=== PATIENT | male | born 1995 | race African-American/Black ===

== ENCOUNTER 2021-01-21 13:12 | Emergency (ER) | payer MEDICAID ==
[~2021-01-21] VITALS: Ht 162.6 cm; Wt 64.0 kg
[2021-01-21] MEDS ORDERED: MORPHINE SULFATE 4 MG/ML CPJ (NOT FOR IM USE) IV STA (13:14)
[2021-01-21] MEDS ORDERED: ONDANSETRON HCL 4MG/2ML INJ IV STA (13:14)
[2021-01-21] MEDS ORDERED: SODIUM CHLORIDE 0.9% 1,000 ML IV ONE (13:15)
[2021-01-21] MEDS ORDERED: CEFAZOLIN 1000MG PREMIX 50 ML IV ONE (13:30)
[2021-01-21] MEDS ORDERED: TETANUS, DIPHTHERIA, PERTUSSIS VAC/PF 0.5ML (>7YR OLD) IM ONE (13:30)
[2021-01-21 14:12] LABS: BASOPHILS % 0.5 % (0.0-2.0); HEMOGLOBIN. 13.5 g/dL (14.0-18.0); LYMPHOCYTES % 65.1 % (20.0-50.0); MEAN CORPUSCULAR HEMOGLOBIN 31.9 pg (28.0-32.0); MEAN CORPUSCULAR VOLUME 94.6 fL (80.0-94.0); MEAN PLATELET VOLUME 8.3 fl (7.4-10.4); MONOCYTES % 7.2 % (2.0-8.0); NEUTROPHILS % 27.2 % (40.0-76.0); PLATELET 387 x1000/uL (130-400); RED BLOOD CELL COUNT 4.23 mill/uL (4.7-6.1); RED CELL DISTRIBUTION WIDTH 14.3 % (11.6-14.6)
[2021-01-21 14:16] LABS: CHLORIDE 107 mEq/L (98-107)
[2021-01-21 14:20] LABS: ETHANOL BLOOD < 10 mg/dL
[2021-01-21] MEDS ORDERED: POTASSIUM CHLORIDE 20MEQ TABLET SR PO ONE (14:45)
[2021-01-21 14:57] VITALS: BP 122/78
== END 2021-01-21 15:14 | disposition short-term general hospital (02) ==
LOC: ER 13:25
DX: S82.452A Displaced comminuted fracture of shaft of left fibula, initial encounter for closed fracture (principal); S82.252A Displaced comminuted fracture of shaft of left tibia, initial encounter for closed fracture; S82.142A Displaced bicondylar fracture of left tibia, initial encounter for closed fracture; W33.01XA Accidental discharge of shotgun, initial encounter; Y93.89 Activity, other specified; Y92.89 Other specified places as the place of occurrence of the external cause; Y99.8 Other external cause status
CPT/HCPCS: 29505; 36415; 73590; 80053; 80320; 85025; 86850; 86900; 86901; 90471; 90715; 96365; 96375; 99284; J0690; J2270; J2405; J7030; G0480

== ENCOUNTER 2022-02-26 13:25 | Emergency (ER) | payer MEDICAID ==
[~2022-02-26] VITALS: Ht 149.9 cm; Wt 52.0 kg
[2022-02-26] MEDS ORDERED: MORPHINE SULFATE 4 MG/ML CPJ (NOT FOR IM USE) IV ONE (13:30)
[2022-02-26] MEDS ORDERED: TETANUS, DIPHTHERIA, PERTUSSIS VAC/PF 0.5ML (>10YR OLD) IM ONE (13:30)
[2022-02-26] MEDS ORDERED: SODIUM CHLORIDE 0.9% 1,000 ML IV ONE (13:30)
[2022-02-26 13:49] LABS: BASOPHILS % 0.3 % (0.0-2.0); EOSINOPHILS % 0.1 % (0.0-5.0); HEMATOCRIT. 41.9 % (42.0-52.0); HEMOGLOBIN. 14.1 g/dL (14.0-18.0); LYMPHOCYTES % 50.8 % (20.0-50.0); MEAN CORPUSCULAR HEMOGLOBIN 31.9 pg (28.0-32.0); MEAN CORPUSCULAR VOLUME 95.1 fL (80.0-94.0); MEAN PLATELET VOLUME 7.7 fl (7.4-10.4); MONOCYTES % 7.2 % (2.0-8.0); NEUTROPHILS % 41.6 % (40.0-76.0); PLATELET 374 x1000/uL (130-400); RED BLOOD CELL COUNT 4.41 mill/uL (4.7-6.1); RED CELL DISTRIBUTION WIDTH 14.2 % (11.6-14.6)
[2022-02-26 13:53] LABS: CHLORIDE 105 mEq/L (98-107)
[2022-02-26 13:58] LABS: PARTIAL THROMBOPLASTIN TIME 26.6 sec (23.4-31.0); PROTHROMBIN TIME 11.1 sec (9.6-11.0)
[2022-02-26] MEDS ORDERED: LIDOCAINE HCL/EPINEPHRINE 1%-EPI 1:100,000 50 ML VIAL INFIL ONE (14:30)
[2022-02-26] MEDS ORDERED: HYDR-4001 MT (14:51)
[2022-02-26] MEDS ORDERED: IBUP-2029 MT (14:51)
[2022-02-26] MEDS ORDERED: IOHEXOL-350 100 ML BOTTLE ONE (15:07)
[2022-02-26 15:23] VITALS: BP 125/73
== END 2022-02-26 15:25 | disposition home or self-care (01) ==
LOC: ER 13:31
DX: S21.112A Laceration without foreign body of left front wall of thorax without penetration into thoracic cavity, initial encounter (principal); S27.898A Other injury of other specified intrathoracic organs, initial encounter; W26.8XXA Contact with other sharp object(s), not elsewhere classified, initial encounter; Y93.89 Activity, other specified; Y92.89 Other specified places as the place of occurrence of the external cause; Y99.8 Other external cause status
CPT/HCPCS: 36415; 71045; 71275; 73590; 80053; 83690; 84484; 85025; 85610; 85730; 86850; 86900; 86901; 90471; 90715; 93005; 96361; 96374; 99285; J2270; J7030; Q9967; Z7610; A4565

== ENCOUNTER 2022-12-20 23:19 | Emergency (ER) | payer MEDICAID ==
[~2022-12-20 23:19] MED LIST: HYDR-4001 MT; IBUP-2029 MT
[2022-12-21] MEDS ORDERED: CEPH500C2 MT (00:43)
[2022-12-21] MEDS ORDERED: IBUP-2028 MT (00:43)
[2022-12-21] MEDS ORDERED: BACITRACIN ZINC OINT UDPKT TOP ONE (00:45)
[2022-12-21] MEDS ORDERED: CEPHALEXIN 250MG CAPSULE PO ONE (00:45)
[2022-12-21 02:00] VITALS: BP 107/69; PULSE 60; RESP 16; TEMP 98.2
== END 2022-12-21 02:33 | disposition home or self-care (01) ==
LOC: ER 23:19
DX: S61.011A Laceration without foreign body of right thumb without damage to nail, initial encounter (principal); S01.82XA Laceration with foreign body of other part of head, initial encounter; W26.0XXA Contact with knife, initial encounter; Y93.89 Activity, other specified; Y92.89 Other specified places as the place of occurrence of the external cause; Y99.8 Other external cause status
CPT/HCPCS: 99283

== ENCOUNTER 2023-01-10 10:29 | Emergency (ER) | payer MEDICAID ==
[~2023-01-10] VITALS: Ht 154.9 cm; Wt 54.0 kg
[~2023-01-10 10:29] MED LIST changes: +CEPH500C2 MT; +IBUP-2028 MT
[2023-01-10 10:43] VITALS: BP 116/74; RESP 20; TEMP 98.1; O2SAT 98
[2023-01-10 10:45] VITALS: PULSE 94
== END 2023-01-10 11:23 | disposition home or self-care (01) ==
LOC: ER 10:38
DX: S61.011D Laceration without foreign body of right thumb without damage to nail, subsequent encounter (principal); Z48.00 Encounter for change or removal of nonsurgical wound dressing; X58.XXXD Exposure to other specified factors, subsequent encounter
CPT/HCPCS: 99281; Z7610